=== PATIENT | female | born 1965 | race Caucasian/White ===

== ENCOUNTER 2017-07-26 19:16 | Emergency (ER) | payer MEDICAID, OTHER ==
[~2017-07-26] VITALS: Ht 160 cm; Wt 119.1 kg
[~2017-07-26 19:16] MED LIST: APIX5TAB3 PO; CEPH500C2 PO; CLIN300C3 PO; CYCL10TA26 PO; DIAZ10TA4 PO; MORP30TA PO
[2017-07-26] MEDS ORDERED: ketorolac trometh inj. 60 MG/2 ML VIAL IM ONE (22:20)
[2017-07-26] MEDS ORDERED: acetaminophen 325mg tablet PO ONE (22:20)
[2017-07-26 22:33] VITALS: BP 129/83
== END 2017-07-26 22:34 | disposition home or self-care (01) ==
LOC: ER 19:16
DX: M79.1 Myalgia (principal); G89.29 Other chronic pain; Z86.718 Personal history of other venous thrombosis and embolism; Z90.710 Acquired absence of both cervix and uterus; Z90.49 Acquired absence of other specified parts of digestive tract; V89.2XXA Person injured in unspecified motor-vehicle accident, traffic, initial encounter; Y93.89 Activity, other specified; Y92.89 Other specified places as the place of occurrence of the external cause; Y99.8 Other external cause status
CPT/HCPCS: 96372; 99283; J1885